=== PATIENT | male | born 1960 | race Caucasian/White ===

== ENCOUNTER → 2017-01-17 | Outpatient (CLI) | payer OTHER | LOC: CIMAGING 13:33 | PROVIDERS: ATTEND Family Medicine | DX: S79.912A Unspecified injury of left hip, initial encounter (principal); S79.911A Unspecified injury of right hip, initial encounter | CPT/HCPCS: 73521-PO ==

== ENCOUNTER 2017-08-17 23:58 | Emergency (ER) | payer OTHER ==
[2017-08-18 00:10] VITALS: BP 143/94
--- NOTE | 2017-08-18 00:23 | EDPHY ---
H & P Time Seen by Provider: 08/17/17 23:59 HPI/ROS: CHIEF COMPLAINT: Rash HISTORY OF PRESENT ILLNESS: Patient states he noted redness with some streaks to his skin when he took his jeans off today before bed. He states he was at a sports game and was sitting in a hot region. He did not notice any itching or discomfort to skin prior to seen the rash. He now describes it as slightly burning in sensation but not painful nor itchy. No fevers or chills. No known exposures to new chemicals or medications. No respiratory complaints. No other skin lesions. States"feels fine otherwise". Has had some seasonal allergies recently and using nasal spray for that but otherwise no new medications. REVIEW OF SYSTEMS: Constitutional: No fever, no chills. Eyes: No discharge. ENT: No sore throat. Cardiovascular: No chest pain, no palpitations. Respiratory: No cough, no shortness of breath. Gastrointestinal: No abdominal pain, no vomiting. Genitourinary: No dysuria. Musculoskeletal: No back pain. Skin: Per HPI Neurological: No headache. General Appearance: Alert, no distress. Eyes: Pupils equal and round no pallor or injection. ENT, Mouth: Mucous membranes moist. Respiratory: There are no retractions, lungs are clear to auscultation. Cardiovascular: Regular rate and rhythm. Gastrointestinal: Abdomen is soft and nontender, no masses, bowel sounds normal. Neurological: Awake and alert, no neurologic deficits. Skin: Warm and dry, several large erythematous areas 1 on the left lateral flank above the belt line. Bilateral thighs involved with left thigh with area of erythema and to linear scratches distal to area of erythema. The right thigh has a large area of involvement which has a region 8 x 15 cm with demarcation at line of shorts extending down the inner thigh. There are also 3 linear"scratches"that extend from the area of erythema to the ankle. Rash is not raised, not indurated, no blisters, necrosis, pustules. No lymphadenopathy to the groin. Musculoskeletal: Neck is supple nontender. Extremities are symmetrical, full range of motion, no edema. Psychiatric: Patient is oriented X 3, there is no agitation. Medical/surgical history: Chronic back and neck pain, depression. Social history: Occasional drinker, nonsmoker. Smoking Status: Never smoked Constitutional: Initial Vital Signs Temperature (C) 36.8 C 05/11/18 00:07 Heart Rate 86 08/18/17 00:07 Respiratory Rate 15 08/18/17 00:07 Blood Pressure 143/94 H 08/18/17 00:07 O2 Sat (%) 94 08/18/17 00:07 O2 Delivery Mode Room Air Allergies/Adverse Reactions: No Known Allergies Allergy (Unverified 12/09/16 11:41) Home Medications: Medication Instructions Recorded Hydrocodone/Acetaminophen 08/18/17 [Hydrocodone-Acetamin 5-300 mg] Medical Decision Making Differential Diagnosis: Differential diagnosis includes but is not limited to contact dermatitis, allergic reaction, cellulitis. After evaluation low suspicion for infectious source as rash is flat, non painful and with large area involved patient should be more symptomatic. Does not appear to be urticaria or hives and there are no other allergic symptoms. Suspect a contact dermatitis or"heat rash"with benign appearance and no significant tenderness to touch. Discussed watchful waiting but will treat with Benadryl and topical hydrocortisone lotion. Strict return precautions if symptoms worsen in any way in the next 12-24 hours he is to return here or see his primary care physician. Stable for discharge. - Data Points Medications Given: Discontinued Medications Diphenhydramine HCl (Benadryl) 50 mg PO EDNOW ONE Stop: 08/18/17 00:25 Last Admin: 08/18/17 00:32 Dose: 50 mg Hydrocortisone (Hydrocortisone 1%) 1 princess TP EDNOW ONE Stop: 08/18/17 00:29 Last Admin: 08/18/17 00:32 Dose: 1 princess Departure - Departure Disposition: Home, Routine, Self-Care Clinical Impression: Dermatitis Condition: Good Instructions: Contact Dermatitis (ED) Additional Instructions: Use Benadryl, diphenhydramine, 50 mg every 6-8 hours as needed for itching and inflammation. Also you can apply topical hydrocortisone cream, available over- the-counter. If your symptoms worsen in any way you should return to this emergency department or see your primary care physician in the next 12-24 hours. Referrals: Patient,NotPresent [Primary Care Provider] - As per Instructions
[2017-08-18] MEDS ORDERED: diphenhydrAMINE 25 MG CAP PO ONE (00:24)
[2017-08-18] MEDS ORDERED: HYDROCORTISONE 1% CREAM TP ONE ×2 (00:26→00:28)
== END 2017-08-18 00:35 | disposition home or self-care (01) ==
LOC: CED 23:58
DX: L30.9 Dermatitis, unspecified (principal)